=== PATIENT | female | born 1965 | race Caucasian/White ===

== ENCOUNTER 2020-12-12 14:27 | Outpatient (CLI) | payer OTHER, SELFPAY ==
[2020-12-12 14:57] LABS: Basophils Percent Auto 0.7 % (0.2-1.2); Eosinophils Absolute Auto 0.2 K/mm3 (0-0.3); Eosinophils Percent Auto 2.7 % (0-4.4); Hematocrit 37.8 % (37.0-47.0); Hemoglobin 12.4 g/dL (12.0-15.0); Immature Granulocyte Absolute 0.01 K/mm3 (0.00-0.031); Immature Granulocyte Percent A 0.2 % (0-0.5); Lymphocytes Absolute Auto 1.59 K/mm3 (0.9-3.2); Lymphocytes Percent Auto 28.6 % (18.3-44.2); Mean Corpuscular HGB Conc 32.8 g/dl (32-36); Mean Corpuscular Hemoglobin 31.8 pg (26-34); Mean Corpuscular Volume 96.9 fl (80-100); Mean Platelet Volume 10.3 fl (7.4-10.4); Monocytes Absolute Auto 0.5 K/mm3 (0.1-0.6); Monocytes Percent Auto 8.5 % (2.6-8.5); Neutrophils Absolute Auto 3.3 K/mm3 (1.3-6.7); Neutrophils Percent Auto 59.3 % (45.5-73.1); Platelet Count Result 249 k/mm3 (150-375); Red Cell Distribution Width 12.4 % (11.5-14.5); White Blood Count 5.6 K/mm3 (4.5-10.0)
[2020-12-12 15:06] LABS: Hemoglobin A1C 5.2 % (<5.7)
[2020-12-12 15:09] LABS: Rheumatoid Factor < 8.6 IU/ML (<12)
[2020-12-12 15:10] LABS: Alanine Aminotransferase 18 U/L (4-35); Albumin Level 4.5 g/dL (3.5-5.1); Alkaline Phosphatase 51 U/L (38-126); Anion Gap 4 mmol/L (8-16); Aspartate Amino Transferase 37 U/L (14-36); Bilirubin,Total 0.9 mg/dL (0.2-1.3); Blood Urea Nitrogen 11 mg/dL (7-17); CRP < 0.5 mg/dL (<1.0); Calcium 9.9 mg/dL (8.4-10.2); Carbon Dioxide 33 mmol/L (22-30); Chloride 102 mmol/L (98-107); Cholesterol 260 mg/dL (0-200); Estimated Glomerular Filt Rate > 60; Glucose 105 mg/dL (65-105); HDL Direct 84 mg/dL; Sodium 139 mmol/L (137-145); Triglycerides 50 mg/dL (<150)
[2020-12-12 15:19] LABS: LDL Cholesterol Direct 113 mg/dL
[2020-12-12 15:41] LABS: Erythrocyte Sedimentation Rate 22 mm/hr (0-20)
[2020-12-12 17:05] LABS: Free T4 Free Thyroxine 0.77 ng/mL (0.78-2.19)
[2020-12-17 11:50] LABS: Vitamin D 1,25 (OH)2 Total 47 pg/mL (18-72); Vitamin D2 1,25 (OH)2 <8 pg/mL; Vitamin D3 1,25 (OH)2 47 pg/mL
[2020-12-17 20:49] LABS: Homocysteine 6.8 umol/L (<10.4)
[2020-12-18 09:42] LABS: Anti Cyclic Citrullinated Pept <16 Units (<20)
== END 2020-12-12 14:28 | disposition home or self-care (01) ==
LOC: ANHLAB 14:29
PROVIDERS: PCP Internal Medicine; Visit Provider Internal Medicine
DX: R76.8 Other specified abnormal immunological findings in serum (principal); Z51.81 Encounter for therapeutic drug level monitoring; Z79.899 Other long term (current) drug therapy; R79.89 Other specified abnormal findings of blood chemistry
CPT/HCPCS: 36415; 80053; 80061; 82652; 83036; 83090; 84439; 84443; 85025; 85652; 86140; 86200; 86430

== ENCOUNTER 2020-12-17 17:07 | Outpatient (CLI) | payer OTHER, SELFPAY ==
[2020-12-21 04:50] LABS: Thyroglobulin 23.7 ng/mL (2.8-40.9); Thyroglobulin Antibodies <1 IU/mL (<=1); Thyroid Peroxidase Antibodies <1 IU/mL (<9)
[2020-12-21 08:27] LABS: Triiodothyronine T3 Free 2.9 pg/mL (2.3-4.2)
== END 2020-12-17 17:08 | disposition home or self-care (01) ==
LOC: ANHLAB 17:08
PROVIDERS: PCP Internal Medicine; Visit Provider Internal Medicine
DX: R94.6 Abnormal results of thyroid function studies (principal)
CPT/HCPCS: 36415; 84432; 84439; 84443; 84481; 86376; 86800

== ENCOUNTER 2021-03-17 16:02 | Outpatient (CLI) | payer OTHER, SELFPAY ==
[2021-03-17 18:16] LABS: Free T4 Free Thyroxine 0.67 ng/mL (0.78-2.19)
== END 2021-03-17 16:03 | disposition home or self-care (01) ==
PROVIDERS: PCP Internal Medicine; Visit Provider Internal Medicine
DX: R94.6 Abnormal results of thyroid function studies (principal); Z79.899 Other long term (current) drug therapy
CPT/HCPCS: 36415; 84439; 84443

== ENCOUNTER 2021-04-29 11:30 | Outpatient (CLI) | payer OTHER, SELFPAY ==
--- NOTE | ~2021-04-29 | XR_ITS ---
XR chest 2V DATE: 04/29/2021 12:11 INDICATION: Atypical chest pain, wheezing. History of smoking. TECHNIQUE: PA and lateral views COMPARISON: 01/21/2019 2 view chest FINDINGS: There is bilateral hyperinflation consistent with COPD. No pulmonary infiltrate or consoli dation, pulmonary vascular congestion or pleural effusion or pneumothorax. Included skeletal structu res are unremarkable. IMPRESSION: Bilateral hyperinflation consistent with COPD Reviewed, dictated and finalized at location B.
== END 2021-04-29 11:31 | disposition home or self-care (01) ==
LOC: ANHIMG 11:39
PROVIDERS: PCP Internal Medicine
DX: R07.89 Other chest pain (principal)
CPT/HCPCS: 71046

== ENCOUNTER 2022-12-25 12:43 | Outpatient (CLI) | payer OTHER, SELFPAY ==
[2022-12-25 13:28] LABS: Alanine Aminotransferase 30 U/L (6-35); Albumin Level 4.4 g/dL (3.5-5.1); Alkaline Phosphatase 48 U/L (38-126); Aspartate Amino Transferase 44 U/L (14-36); Bilirubin,Total 1.2 mg/dL (0.2-1.3); Cholesterol 236 mg/dL (0-200); HDL Direct 100 mg/dL; Triglycerides 39 mg/dL (<150)
[2022-12-25 13:39] LABS: LDL Cholesterol Direct 115 mg/dL
== END 2022-12-25 12:44 | disposition home or self-care (01) ==
LOC: ANHLAB 12:44
PROVIDERS: PCP Internal Medicine; Visit Provider Internal Medicine
DX: E78.5 Hyperlipidemia, unspecified (principal); Z79.899 Other long term (current) drug therapy
CPT/HCPCS: 36415; 80061; 80076

== ENCOUNTER → 2023-06-02 10:02 | Outpatient (CLI) | payer OTHER, SELFPAY ==
--- NOTE | ~2023-06-02 | CT_ITS ---
CT Scan of the Chest without Contrast: Clinical Indication: Personal history of nicotine dependence Technique: Contiguous sections were acquired throughout the chest without intravenous contrast. Dose reduction technique was used on this scan by utilizing automated exposure control and iterative recon struction technique. The dose-length product (DLP) was 159.25 mGy-cm. Findings: There is no evidence of any significant mediastinal, hilar or axillary lymphadenopathy. The mediastin al soft tissues appear normal. There is no evidence of pleural or pericardial effusion. The lungs are clear. No pulmonary nodules or infiltrates are noted. Images through the upper abdomen reveal no abnormalities. Impression: No significant abnormalities seen. Reviewed, dictated and finalized at location . D TREATMENT RN Impression: No significant abnormalities seen.
== END ==
PROVIDERS: PCP Internal Medicine; Visit Provider Internal Medicine
DX: F17.200 Nicotine dependence, unspecified, uncomplicated (principal)
CPT/HCPCS: 71250

== ENCOUNTER 2023-07-04 12:11 | Emergency (ER) | payer OTHER, SELFPAY ==
[2023-07-04 12:37] VITALS: BP 134/90; PULSE 85; RESP 16; TEMP 37.1; O2SAT 100
--- NOTE | 2023-07-04 13:38 | ED.GENADULT ---
HPI - General Adult General Chief complaint: Upper Respiratory Infection Stated complaint: BODY ACHES/FEVER/NAUSEA/UTI SYMPTOMS Source: patient Mode of arrival: ambulatory Limitations: no limitations History of Present Illness HPI narrative: Patient presents for evaluation of generally not feeling well. She indicates she had a flu shot 5 days ago. The day after she developed headache, generalized body aches, nausea and a cough. She denies any chills, vomiting, diarrhea, shortness of breath. She took a dose of her migraine medication which helped her headache. She also had some zofran at home which helped with her nausea. No recent sick contacts to her knowledge. She has had some right flank pain for awhile but developed some urinary frequency so requested we check her for UTI. Related Data Home Medications Medication Instructions Recorded Confirmed omeprazole 40 mg capsule,delayed 40 mg PO DAILY 06/23/19 07/04/23 release multivitamin,[id number] 1 tablet PO DAILY 03/20/20 07/04/23 (Complete Multivitamin tablet) nortriptyline 10 mg capsule 10 mg PO QHS 12/12/20 07/04/23 conjugated estrogens 0.625 mg/gram 0.625 mg vaginal DAILY 04/09/21 07/04/23 vaginal cream (Premarin) Allergies Allergy/AdvReac Type Severity Reaction Status Date / Time ciprofloxacin Allergy Unknown Unknown Verified 07/04/23 12:42 Review of Systems Review of Systems: CONSTITUTIONAL: reports fever. Denieschills, or sweats. EYES: Denies visual changes, redness, or discharge. ENT: Denies rhinorrhea, congestion, sore throat, or otalgia. CARDIOVASCULAR: Denies chest pain, palpitations, or edema. RESPIRATORY:Reports cough. Denies dyspnea. GASTROINTESTINAL: Reports nausea. Denies abdominal pain,vomiting, or diarrhea. GENITOURINARY: Denies dysuria or hematuria. SKIN: Denies rash or itching. MUSCULOSKELETAL: reports generalized body NEUROLOGIC: Reports headache. Denies numbness, dizziness, or weakness. PSYCHIATRIC: Denies anxiety or depression. [facility] Past Medical History Medical History Abnormal thyroid function test BMI 21.0-21.9, adult BMI 22.0-22.9, adult Bronchospasm Costochondritis Encounter for preventive health examination Encounter for routine adult health examination without abnormal findings Epigastric burning sensation Follow up Former tobacco use GERD (gastroesophageal reflux disease) Hormone replacement therapy Migraine Mild persistent reactive airway disease without complication On penitentiary drug therapy Reactive airway disease without complication Rib pain on left side Thoracic spine pain URI (upper respiratory infection) Wheezing Surgical History Surgical History History of colonoscopy Family History Family History Mother Family history of migraine headaches Hypertension Patient's mother is in good health Father Hypertension Patient's father is in good health Sibling Family history of thyroid disease Other Acute myocardial infarction Family history of Alzheimer's disease Family history of cardiovascular disease Family history of lung cancer Family history of malignant neoplasm Family history of malignant neoplasm of esophagus Family history of malignant neoplasm of urinary bladder Family history of pancreatic cancer Social History Social History Smoking status: Former smoker Second hand tobacco smoke exposure: No Smoking end date: 07/19/96 Alcohol intake: never Lack of Transportation: No Lack of Food: Never True Current Housing: I Have Housing Concerned About Future Housing: No Difficulty Paying Gas/Electric Bills: No Difficulty Paying for Meds: No Currently Unemployed: No Education: Bachelor's Degree Difficulty w/ C
== END 2023-07-04 13:41 | disposition home or self-care (01) ==
PROVIDERS: Emergency Provider Nurse Practitioner; PCP Internal Medicine
DX: B34.9 Viral infection, unspecified (principal); Z20.822 Contact with and (suspected) exposure to COVID-19; Z87.891 Personal history of nicotine dependence; K21.9 Gastro-esophageal reflux disease without esophagitis; J45.909 Unspecified asthma, uncomplicated
CPT/HCPCS: 81003; 87081; 87426; 87804; 87880; 99213; C9803; G0463

== ENCOUNTER 2023-07-05 09:48 | Emergency (ER) | payer OTHER, SELFPAY ==
[2023-07-05] VITALS (14 sets, daily range): BP systolic 117–147; BP diastolic 78–93; PULSE 69–85; RESP 15–20; TEMP 36.3; O2SAT 97–100
[2023-07-05 10:56] LABS: Basophils Percent Auto 0.6 % (0.2-1.2); Eosinophils Absolute Auto 0.1 K/mm3 (0-0.3); Hematocrit 40.8 % (37.0-47.0); Hemoglobin 13.4 g/dL (12.0-15.0); Immature Granulocyte Absolute 0.01 K/mm3 (0.00-0.031); Immature Granulocyte Percent A 0.2 % (0-0.5); Lymphocytes Absolute Auto 0.68 K/mm3 (0.9-3.2); Lymphocytes Percent Auto 13.7 % (18.3-44.2); Mean Corpuscular HGB Conc 32.8 g/dl (32-36); Mean Corpuscular Hemoglobin 32.1 pg (26-34); Mean Corpuscular Volume 97.6 fl (80-100); Mean Platelet Volume 9.9 fl (7.4-10.4); Monocytes Absolute Auto 0.5 K/mm3 (0.1-0.6); Monocytes Percent Auto 9.1 % (2.6-8.5); Neutrophils Absolute Auto 3.7 K/mm3 (1.3-6.7); Neutrophils Percent Auto 75.4 % (45.5-73.1); Platelet Count Result 216 k/mm3 (150-375); Red Blood Count 4.18 M/mm3 (4.2-5.4)
[2023-07-05] MEDS: SODIUM CHLORIDE 0.9% IV 1,000 ML 999 ML IV CONT (11:04)
[2023-07-05] MEDS: KETOROLAC 30 MG/ML VIAL (*BKC) IV PUSH (11:05)
[2023-07-05] MEDS: ONDANSETRON INJ 4 MG/2 ML VIAL IV PUSH ×2 (11:05→13:03)
[2023-07-05 11:10] LABS: Alanine Aminotransferase 35 U/L (6-35); Albumin Level 4.3 g/dL (3.5-5.1); Alkaline Phosphatase 61 U/L (38-126); Anion Gap 7 mmol/L (8-16); Aspartate Amino Transferase 45 U/L (14-36); Bilirubin,Total 0.7 mg/dL (0.2-1.3); Blood Urea Nitrogen 10 mg/dL (7-17); Calcium 9.4 mg/dL (8.4-10.2); Carbon Dioxide 30 mmol/L (22-30); Chloride 97 mmol/L (98-107); Estimated CRCL calculation 71 ml/min; Estimated Glomerular Filt Rate > 60; Glucose 106 mg/dL (65-110); Lipase 63 U/L (23-300); Potassium 3.6 mmol/L (3.4-5.0); Sodium 134 mmol/L (137-145)
[2023-07-05 11:43] LABS: Appearance Urine Turbid (Clear); Bacteria Urine 4+ /hpf; Bilirubin Urine 1+ (Negative); Blood Urine 2+ (Negative); Color Urine Dark Yellow (Yellow); Glucose Urine UA Negative (Negative); Ketones Urine 2+ mg/dL (Negative); Leukocyte Esterase Ur Trace LEU/UL (Negative); Need Manual Microscopic Reviewed; Nitrate Urine Negative (Negative); Non Pathogenic Casts 0-2; Protein Urine 1+ mg/dL (Negative); RBC Urine 21-50 /hpf (0-2); Specific Grav Ur 1.025 (1.001-1.035); Squamous Epithelial Cell Urine Many /hpf (Few); WBC Urine 21-50 /hpf; pH Urine 6.5 (5.0-9.0)
[2023-07-05 11:45] LABS: Add Urine Microscopic? YES
[2023-07-05 12:14] LABS: Influenza A QL RT-PCR Negative (Negative); Influenza B QL RT-PCR Negative (Negative); SARS-CoV-2 RNA PCR Negative (Negative)
[2023-07-05] MEDS: MORPHINE SULFATE (*CRX) 4 MG/ML INJ IV PUSH (12:58)
--- NOTE | 2023-07-05 14:03 | ED.NAVMDI ---
HPI - Nausea/Vomiting/Diarrhea General Chief complaint: Nausea/Vomiting/Diarrhea Stated complaint: vomiting, headache Time Seen by Provider: 07/05/23 10:48 History of Present Illness HPI Narrative: Patient is a 58-year-old female who presents ER with migraine headache. Has history of migraines in the past. Took Fioricet without improvement. Reports she has been having fevers and chills and body aches for the last 5 days. No real sinus congestion sore throat. No urinary symptoms or abdominal pain. After suffering with these symptoms for several days she developed a headache yesterday. No neck stiffness or no numbness or tingling to the arms or legs. Related Data Home Medications Medication Instructions Recorded Confirmed omeprazole 40 mg capsule,delayed 40 mg PO DAILY 06/23/19 07/04/23 release multivitamin,[id number] 1 tablet PO DAILY 03/20/20 07/04/23 (Complete Multivitamin tablet) nortriptyline 10 mg capsule 10 mg PO QHS 12/12/20 07/04/23 conjugated estrogens 0.625 mg/gram 0.625 mg vaginal DAILY 04/09/21 07/04/23 vaginal cream (Premarin) Allergies Allergy/AdvReac Type Severity Reaction Status Date / Time ciprofloxacin Allergy Unknown Unknown Verified 07/04/23 12:42 Review of Systems Review of Systems: All systems reviewed & are unremarkable except as noted in HPI and below Constitutional: Constitutional: Reports chills, Reports fatigue and Reports fever(s) ENT: Reports system reviewed and no additional complaints, except as documented Cardiovascular: Cardiovascular: Reports no additional cardiovascular complaints Respiratory: Respiratory: Reports no additional respiratory complaints Gastrointestinal: Gastrointestinal: Reports no additional gastrointestinal complaints Musculoskeletal: Musculoskeletal: Reports myalgias, Denies arthralgias and Denies joint swelling Neurologic: Denies syncope, Denies focal weakness and Denies numbness Comments: +Headache PMFSH Past Medical History Medical History Abnormal thyroid function test BMI 21.0-21.9, adult BMI 22.0-22.9, adult Bronchospasm Costochondritis Encounter for preventive health examination Encounter for routine adult health examination without abnormal findings Epigastric burning sensation Follow up Former tobacco use GERD (gastroesophageal reflux disease) Hormone replacement therapy Migraine Mild persistent reactive airway disease without complication On advertising account representative drug therapy Reactive airway disease without complication Rib pain on left side Thoracic spine pain URI (upper respiratory infection) Wheezing Surgical History Surgical History History of colonoscopy Family History Family History Mother Family history of migraine headaches Hypertension Patient's mother is in good health Father Hypertension Patient's father is in good health Sibling Family history of thyroid disease Other Acute myocardial infarction Family history of Alzheimer's disease Family history of cardiovascular disease Family history of lung cancer Family history of malignant neoplasm Family history of malignant neoplasm of esophagus Family history of malignant neoplasm of urinary bladder Family history of pancreatic cancer Social History Social History Smoking status: Former smoker Second hand tobacco smoke exposure: No Smoking end date: 07/19/96 Alcohol intake: never Lack of Transportation: No Lack of Food: Never True Current Housing: I Have Housing Concerned About Future Housing: No Difficulty Paying Gas/Electric Bills: No Difficulty Paying for Meds: No Currently Unemployed: No Education: Bachelor's Degree Difficulty w/ Childcare or Family Care: No Living arrangeme
== END 2023-07-05 14:27 | disposition home or self-care (01) ==
PROVIDERS: Emergency Provider Emergency Medicine; PCP Internal Medicine
DX: G43.909 Migraine, unspecified, not intractable, without status migrainosus (principal); N39.0 Urinary tract infection, site not specified; Z87.891 Personal history of nicotine dependence; Z20.822 Contact with and (suspected) exposure to COVID-19
CPT/HCPCS: 36415; 80053; 81001; 83690; 85025; 87086; 87088; 87636; 96361; 96374; 96375; 96376; 99284; J1885; J2270; J2405; J7030

== ENCOUNTER 2024-04-01 12:01 | Emergency (ER) | payer OTHER, SELFPAY ==
--- NOTE | ~2024-04-01 | XR_ITS ---
EXAMINATION: XR hand RT min 3V DATE: 04/01/2024 12:17 INDICATION: Pain at the right second and fourth metacarpals post fall TECHNIQUE: Posteroanterior, oblique and lateral views of the right hand were obtained. COMPARISON: None. FINDINGS: Diffuse osteopenia. Alignment is normal. No fracture. Mild osteoarthritis at the distal radioulnar, t he first carpometacarpal joint and a few of the interphalangeal joints. Mild soft tissue swelling [place] dinesh to the heads of the metacarpals. IMPRESSION: 1. 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 No acute osseous abnormality. Reviewed, dictated and finalized at location A. IMPRESSION: 1. 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 No acute osseous abnorm ality.
[2024-04-01 12:06] VITALS: BP 121/89; PULSE 78; RESP 16; TEMP 36.8; O2SAT 100
--- NOTE | 2024-04-01 12:29 | ED.UPPEXIN ---
HPI - Extremity Injury (Upper) General Chief Complaint: Extremity Injury, Upper Stated Complaint: R HAND INJURY Time Seen by Provider: 04/01/24 12:27 Source: patient and RN notes reviewed Mode of arrival: ambulatory Limitations: no limitations History of Present Illness HPI narrative: Patient presents today complaining of right hand pain after falling yesterday after slipping on some water. Denies numbness and tingling. Pain increases with movement of the fingers. No OTC treatment prior to arrival. Related Data Home Medications Medication Instructions Recorded Confirmed omeprazole 40 mg capsule,delayed 40 mg PO DAILY 06/23/19 04/01/24 release multivitamin,[id number] 1 tablet PO DAILY 03/20/20 04/01/24 (Complete Multivitamin tablet) nortriptyline 10 mg capsule 10 mg PO QHS 12/12/20 04/01/24 conjugated estrogens 0.625 mg/gram 0.625 mg vaginal DAILY 04/09/21 04/01/24 vaginal cream (Premarin) ondansetron HCl 4 mg tablet 4 mg PO DAILY 04/01/24 04/01/24 Allergies Allergy/AdvReac Type Severity Reaction Status Date / Time ciprofloxacin Allergy Unknown Unknown Verified 04/01/24 12:25 Review of Systems Review of Systems: CONSTITUTIONAL: Denies body aches, fever, chills, or sweats. EYES: Denies visual changes, redness, or discharge. ENT: Denies rhinorrhea, congestion, sore throat, or otalgia. CARDIOVASCULAR: Denies chest pain, palpitations, or edema. RESPIRATORY: Denies cough or dyspnea. GASTROINTESTINAL: Denies abdominal pain, nausea, vomiting, or diarrhea. GENITOURINARY: Denies dysuria or hematuria. SKIN: Denies rash, itching, or wounds. MUSCULOSKELETAL: Denies back pain, or myalgia.+ right hand injury NEUROLOGIC: Denies headache, numbness, tingling, or weakness. PSYCH: Denies depression or anxiety. [facility] Past Medical History Medical History Abnormal thyroid function test BMI 21.0-21.9, adult BMI 22.0-22.9, adult Bronchospasm Costochondritis Encounter for preventive health examination Encounter for routine adult health examination without abnormal findings Epigastric burning sensation Follow up Former tobacco use GERD (gastroesophageal reflux disease) Hormone replacement therapy Migraine Mild persistent reactive airway disease without complication On termite control technician drug therapy Reactive airway disease without complication Rib pain on left side Thoracic spine pain URI (upper respiratory infection) Wheezing Surgical History Surgical History History of colonoscopy Family History Family History Mother Family history of migraine headaches Hypertension Patient's mother is in good health Father Hypertension Patient's father is in good health Sibling Family history of thyroid disease Other Acute myocardial infarction Family history of Alzheimer's disease Family history of cardiovascular disease Family history of lung cancer Family history of malignant neoplasm Family history of malignant neoplasm of esophagus Family history of malignant neoplasm of urinary bladder Family history of pancreatic cancer Social History Social History Smoking status: Former smoker Second hand tobacco smoke exposure: No Smoking end date: 07/19/96 Alcohol intake: never Lack of Transportation: No Lack of Food: Never True Current Housing: I Have Housing Concerned About Future Housing: No Difficulty Paying Gas/Electric Bills: No Difficulty Paying for Meds: No Currently Unemployed: No Education: Bachelor's Degree Difficulty w/ Childcare or Family Care: No Living arrangements: with family Gender identity (if verbalized by the patient): Female Comments At time of signature, I have reviewed and agree with nursing past medical, surgical
== END 2024-04-01 12:33 | disposition home or self-care (01) ==
PROVIDERS: Emergency Provider Nurse Practitioner; PCP Internal Medicine
DX: S60.221A Contusion of right hand, initial encounter (principal); W01.0XXA Fall on same level from slipping, tripping and stumbling without subsequent striking against object, initial encounter; G21.9 Secondary parkinsonism, unspecified; J45.909 Unspecified asthma, uncomplicated; Z87.891 Personal history of nicotine dependence
CPT/HCPCS: 73130; 99213; G0463

== ENCOUNTER 2024-05-08 16:10 | Outpatient (CLI) | payer OTHER, SELFPAY ==
--- NOTE | ~2024-05-08 | XR_ITS ---
XR hand RT 2V Ordering provider: Chely Cardenas PA-C History: . S60.221A - Contusion of right hand, initial encounter . Comparison: April 01, 2024 FINDINGS: BONES: No acute fracture or dislocation. JOINT SPACES: Normal. SOFT TISSUES: Normal. IMPRESSION: No acute osseous abnormality right hand. Reviewed, dictated and finalized at location A.
== END 2024-05-08 16:11 | disposition home or self-care (01) ==
PROVIDERS: PCP Internal Medicine; Visit Provider Physician Assistant Surgical
DX: S60.221A Contusion of right hand, initial encounter (principal); X58.XXXA Exposure to other specified factors, initial encounter
CPT/HCPCS: 73120